=== PATIENT | female | born 1965 | race Two or more races ===

== ENCOUNTER → 2024-12-01 | Outpatient (CLI) | payer MEDICAID, SELFPAY ==
--- NOTE | 2024-12-01 | XR_ITS ---
Examination: Screening digital mammography, bilateral Computer aided detection 3-D breast Tomosynthesis, bilateral Date and time of exam: December 01, 2024 1556 hours Compared to mammograms dating to December 02, 2017 Indication: Screening Technique: Nonmagnified MLO, CC views of the breasts to been obtained, reconstructed from 3-D Tomosynthesis images. R2 computer aided detection program utilized for evaluation of suspicious masses and/or abnormal calcifications. 3-D Tomosynthesis images obtained. Findings: Scattered areas of fibroglandular density. Benign calcifications. No interval suspicious masses Impression: BI-RADS category II: Benign Findings. Recommend 1 year follow-up mammogram.
== END | disposition home or self-care (01) ==
LOC: CDIM 14:52
PROVIDERS: Referring Provider Registered Nurse Community Health; Visit Provider Registered Nurse Community Health
DX: Z12.31 Encounter for screening mammogram for malignant neoplasm of breast (principal); R92.323 Mammographic fibroglandular density, bilateral breasts; R92.1 Mammographic calcification found on diagnostic imaging of breast
CPT/HCPCS: 77063; 77067

== ENCOUNTER → 2025-06-10 | Outpatient (CLI) | payer MEDICAID, SELFPAY ==
--- NOTE | 2025-06-10 11:00 | XR_ITS ---
Examination: Retroperitoneal ultrasound, complete Technique: Multiple high resolution grayscale images of the retroperitoneum obtained, including kidneys and bladder. Exam date and time:June 10, 2025 11:30 AM INDICATIONS: Diagnosis type 2 diabetes FINDINGS: Right kidney 11.0 cm cortex 1.0 cm Left kidney 10.0 cm cortex 1.2 cm Mild right moderate left renal parenchymal scar formation No hydronephrosis No bladder mass or bladder calculi Bladder prevoid volume 332 cc IMPRESSION: Bilateral renal cortical thinning Mild right moderate left renal parenchymal scar formation
== END | disposition home or self-care (01) ==
LOC: CDIM 10:50
PROVIDERS: PCP Registered Nurse Community Health; Referring Provider Registered Nurse Community Health; Visit Provider Registered Nurse Community Health
DX: N28.89 Other specified disorders of kidney and ureter (principal)
CPT/HCPCS: 76770

== ENCOUNTER → 2025-08-02 | Outpatient (CLI) | payer MEDICAID, SELFPAY ==
--- NOTE | 2025-08-02 09:30 | ECHO_ITS ---
Transthoracic Echo Report Ht (in): 61 Wt (lb): 140 Exam Location: Echo Lab Status: Outpatient Felt Hooker: Jaja Layne Indications: Procedure Performed: BP: 189 / 109 HR: 74 MEASUREMENTS (Male / Female) Normal Values 2D ECHO LV Diastolic Diameter PLAX 4.7 cm 4.2 - 5.9 / 3.9 - 5.3 cm LV Systolic Diameter PLAX 3.2 cm IVS Diastolic Thickness 0.8 cm 0.6 - 1.0 / 0.6 - 0.9 cm LVPW Diastolic Thickness 1.1 cm 0.6 - 1.0 / 0.6 - 0.9 cm LV Relative Wall Thickness 0.4 LVOT Diameter 1.8 cm LA Volume Index 30.1 cm?/m? 16 - 28 cm?/m? Ascending Aorta Diameter 2.7 cm M-MODE AV Cusp Separation MM 1.4 cm DOPPLER AV Peak Velocity 144.0 cm/s AV Peak Gradient 8.3 mmHg AV Mean Gradient 5.0 mmHg AV Velocity Time Integral 37.0 cm LVOT Peak Velocity 117.0 cm/s LVOT Peak Gradient 5.5 mmHg LVOT Velocity Time Integral 29.8 cm LVOT Cardiac Index 3360.4 cm?/min?m? AV Area Cont Eq vti 2.0 cm? AV Area Cont Eq pk 2.1 cm? MV Area PHT 3.2 cm? Mitral E Point Velocity 93.6 cm/s Mitral A Point Velocity 110.0 cm/s Mitral E to A Ratio 0.9 LV E' Lateral Velocity 7.4 cm/s Mitral E to LV E' Lateral Ratio 12.6 LV E' Septal Velocity 6.4 cm/s Mitral E to LV E' Septal Ratio 14.6 TR Peak Velocity 131.7 cm/s TR Peak Gradient 6.9 mmHg PV Peak Velocity 96.4 cm/s PV Peak Gradient 3.7 mmHg FINDINGS Left Ventricle Normal left ventricular size, wall thickness, systolic function with no obvious regional wall motion abnormalities. Normal left ventricular diastolic filling pattern for age. The ejection fraction is visually estimated at 65 %. Right Ventricle The right ventricle is normal in size and systolic function. Left Atrium The left atrium is normal by two-dimensional, color flow and Doppler imaging with no structural abnormalities, no thrombus formation present. Right Atrium The right atrium is normal by two-dimensional imaging, color flow and Doppler imaging with no structural abnormalities, no thrombus formation present. Atrial Septum The interatrial septum appears normal with no evidence of a shunt. Aorta The aorta is normal by two-dimensional, color flow and Doppler interrogation. Mitral Valve The mitral valve is normal by two-dimensional, color flow and Doppler interrogation. There is no significant mitral valve regurgitation, stenosis or prolapse. Aortic Valve The aortic valve is trileaflet and normal by two-dimensional, color flow and Doppler interrogation. There is no significant aortic valve regurgitation. Tricuspid Valve The tricuspid valve is normal by two-dimensional, color flow and Doppler interrogation. There is trace tricuspid valve regurgitation. Pulmonic Valve The pulmonic valve is not well visualized. There is no significant pulmonic valve regurgitation. Vessels The pulmonary artery appears normal. The inferior vena cava pulmonary and hepatic veins appear normal. Pericardium The pericardium is normal by two-dimensional imaging. There is no significant pericardial effusion. CONCLUSIONS Indication: Essential (primary) hypertension Normal left ventricular size and function. Approximate ejection fraction is 65%. Normal right ventricular size and function. Mild tricuspid regurgitation insignificant Cece Steward (Electronically Signed) Final Date: 02 August 2025 12:17
== END | disposition home or self-care (01) ==
LOC: SDIM 09:44
PROVIDERS: PCP Registered Nurse Community Health; Referring Provider Registered Nurse Community Health; Visit Provider Registered Nurse Community Health
DX: I07.1 Rheumatic tricuspid insufficiency (principal); I10 Essential (primary) hypertension
CPT/HCPCS: 93306